=== PATIENT | male | born 1960 | race Caucasian/White ===

== ENCOUNTER 2023-08-31 09:00 | Day surgery (SDC) | payer MEDICARE, MEDICAID ==
[~2023-08-31] VITALS: Ht 167.6 cm; Wt 73.0 kg
[~2023-08-31 09:00] MED LIST: BALANCED SALT IRRIG SOLN 15ML ONE
[2023-08-31 09:06] VITALS: TEMP 98.8; O2SAT 99
[2023-08-31] MEDS ORDERED: CEFAZOLIN SODIUM 2000MG/VIAL IJ ONE (09:45)
[2023-08-31] MEDS ORDERED: SODIUM CHLORIDE 0.9% 1,000 ML IV ONE (09:45)
[2023-08-31 09:55] LABS: BASOPHILS % 0.8 % (0.0-2.0); EOSINOPHILS % 8.6 % (0.0-5.0); HEMATOCRIT. 30.5 % (42.0-52.0); HEMOGLOBIN. 10.4 g/dL (14.0-18.0); LYMPHOCYTES % 14.2 % (20.0-50.0); MEAN CORPUSCULAR HEMOGLOBIN 30.4 pg (28.0-32.0); MEAN CORPUSCULAR HGB CONC 34.1 g/dL (31.0-37.0); MEAN CORPUSCULAR VOLUME 89.1 fL (80.0-94.0); MEAN PLATELET VOLUME 9.1 fl (7.4-10.4); MONOCYTES % 7.8 % (2.0-8.0); NEUTROPHILS % 68.6 % (40.0-76.0); PLATELET 220 x1000/uL (130-400); RED BLOOD CELL COUNT 3.42 mill/uL (4.7-6.1); RED CELL DISTRIBUTION WIDTH 15.1 % (11.6-14.6); WHITE BLOOD COUNT 9.9 x1000/uL (4.5-11.0)
[2023-08-31 09:59] LABS: CHLORIDE 104 mEq/L (98-107); POTASSIUM 3.9 mEq/L (3.5-5.1); SODIUM 140 mEq/L (136-145)
[2023-08-31 10:00] LABS: CALCIUM 7.8 mg/dL (8.7-10.4); CARBON DIOXIDE 22 mEq/L (21-32)
[2023-08-31 10:02] LABS: INR 0.9; PROTHROMBIN TIME 10.5 sec (9.6-11.0)
[2023-08-31 10:05] LABS: GLUCOSE 66 mg/dL (70-105); UREA NITROGEN BLOOD 60 mg/dL (9-23)
[2023-08-31 10:07] LABS: ALANINE AMINOTRANSFERASE 15 IU/L (10-49); ALBUMIN 3.9 g/dL (3.2-4.8); ASPARTATE AMINOTRANSFERASE 16 IU/L (<34); BILIRUBIN TOTAL < 0.2 mg/dL (0.1-1.0); PROTEIN TOTAL 6.7 g/dL (6.0-8.3)
[2023-08-31 10:16] LABS: CREATININE 12.2 mg/dL (0.6-1.3)
[2023-08-31] MEDS ORDERED: PROPOFOL 200MG/20ML VIAL IV ONE (10:36)
[2023-08-31] MEDS ORDERED: BUPIVACAINE HCL/PF 0.75% (7.5MG/ML) 10ML ONE (10:46)
[2023-08-31] MEDS ORDERED: MIDAZOLAM HCL 2 MG/2 ML VIAL ONE (10:58)
[2023-08-31] MEDS ORDERED: ONDANSETRON HCL 4MG/2ML INJ ONE (11:08)
[2023-08-31] MEDS ORDERED: DEXAMETHASONE 4MG/ML 1ML VIAL ONE (11:08)
[2023-08-31] MEDS ORDERED: FENTANYL CITRATE/PF 50MCG/ML 2ML VIAL IV PRN (11:30)
[2023-08-31] MEDS ORDERED: ONDANSETRON HCL 4MG/2ML INJ IV PRN (11:30)
[2023-08-31] MEDS ORDERED: HYDROMORPHONE HCL/PF 2MG/ML CPJ IV PRN (11:30)
[2023-08-31] MEDS ORDERED: TRIAMCINOLONE ACETONIDE 40MG/ML 1ML VIAL ONE (11:59)
[2023-08-31 12:33] VITALS: BP 147/85; PULSE 68; RESP 18
[2023-08-31] MEDS: HYDROCODONE/ACETAMINOPHEN 5/325MG TABLET PO NR (12:33)
== END 2023-08-31 13:30 | disposition home or self-care (01) ==
LOC: ER 09:00 → CANBEDREQ 10:41 → OR 11:32 → ER 18:02
PROVIDERS: ATTEND Ophthalmology
DX: T85.398A Other mechanical complication of other ocular prosthetic devices, implants and grafts, initial encounter (principal); H53.8 Other visual disturbances; E11.319 Type 2 diabetes mellitus with unspecified diabetic retinopathy without macular edema; Z79.899 Other long term (current) drug therapy; Z98.890 Other specified postprocedural states; X58.XXXA Exposure to other specified factors, initial encounter; Y93.89 Activity, other specified; Y92.89 Other specified places as the place of occurrence of the external cause; Y99.8 Other external cause status
CPT/HCPCS: 80053; 82962; 85025; 85610; 86850; 86900; 86901; 36415; 99283; 66184; J3490 ×2; J0690; J1100; J2250; J2405; J2704; J3301; J7030; A4217; Z7610 ×14